=== PATIENT | female | born 1975 | race Caucasian/White ===

== ENCOUNTER 2017-08-05 10:11 | Emergency (ER) | payer OTHER ==
[~2017-08-05] VITALS: Ht 162.6 cm; Wt 81.7 kg
[~2017-08-05 10:11] MED LIST: ACIDOPHILUS; AMOX500; AMOX500 PO; BIRTH CONTROL PILLS; CLIN300 PO; CYCL10 PO; EPIPEN 2-P0.3 MG/0.3 IM; EPIPEN0.3 MG/0.3 IM; ERYT500 PO; FERR325; FLUO10; HYDACE5 PO; HYDHCL25 PO; IBUP600 PO; IBUP800 PO; LOVA40 PO; METPRE4DP PO; MULVITMINE; NAPR550 PO; Norco 10-325 T1 EACH PO; OXYACE5T; OXYACE5T PO; OXYCODONE HCL E10 MG PO; PENVK500 PO; PROM25 PO; Prednisone20 MG PO; Prednisone50 MG PO; RXCYCL10 PO; RXHYDACE PO; Robaxin-750750 MG PO; SILENOR3 MG PO; TRAM50 PO; TRAZ50 PO; Valium5 MG PO; Zofran Odt4 MG SL; Zofran4 MG PO
[2017-08-05] MEDS ORDERED: OXYC10ER (10:41)
[2017-08-05] MEDS ORDERED: TIZANIDINE HCL2 MG (10:41)
[2017-08-05] MEDS ORDERED: MONT4 (10:43)
[2017-08-05 11:19] LABS: BASOPHILS ABSOLUTE AUTO 0.05 K/mm3 (0.00-0.23); BASOPHILS PERCENT AUTO 1 % (0-2); EOSINOPHILS ABSOLUTE AUTO 0.14 K/mm3 (0.00-0.68); EOSINOPHILS PERCENT AUTO 2 % (0-6); Hematocrit 40.9 % (33.0-51.0); Hemoglobin 13.4 g/dL (11.5-16.0); IMMATURE GRAN ABSOLUTE AUTO 0.02 K/mm3 (0.00-0.10); IMMATURE GRAN PERCENT AUTO 0 % (0-1); LYMPHOCYTES ABSOLUTE AUTO 3.39 K/mm3 (0.84-5.20); LYMPHOCYTES PERCENT AUTO 43 % (21-46); MONOCYTES ABSOLUTE AUTO 0.42 K/mm3 (0.16-1.47); MONOCYTES PERCENT AUTO 5 % (4-13); Mean Corpuscular HGB 30.5 pg (26.0-34.0); Mean Corpuscular HGB Conc 32.8 g/dL (31.5-36.5); Mean Corpuscular Volume 93 fL (80-100); Mean Platelet Volume 10.5 fL (9.1-12.4); NEUTROPHILS ABSOLUTE AUTO 3.79 K/mm3 (1.96-9.15); NEUTROPHILS PERCENT AUTO 49 % (41-73); Platelet Count 310 K/mm3 (150-400); RDW Coefficient Variation 13.8 % (11.7-14.2); RDW Standard Deviation 47.6 fL (35.1-46.3); Red Blood Cell Count 4.39 M/mm3 (3.80-5.20); White Blood Cell Count 7.81 K/mm3 (4.00-11.30)
[2017-08-05 11:52] LABS: Alanine Aminotransfer (ALT/SGP 25 U/L (12-78); Albumin, Blood 3.9 g/dL (3.4-5.0); Albumin/Globulin Ratio 1.2 (0.8-1.8); Alk Phos 115 U/L (50-136); Anion Gap 7 mmol/L (6-16); Aspartate Aminotrans (AST/SGOT 12 U/L (12-37); Bilirubin, Total 0.2 mg/dL (0.1-1.0); Blood Urea Nitrogen 11 mg/dL (8-24); Bun/Creatinine Ratio 17.5 (12.0-20.0); CO2, Blood 26 mmol/L (21-32); Calcium, Blood 8.6 mg/dL (8.5-10.1); Chloride, Blood 109 mmol/L (98-108); Creatinine, Blood 0.63 mg/dL (0.40-1.00); Globulin, Blood 3.2 g/dL (2.2-4.0); Glomerular Filtration Rate >60 (60-); Glucose, Blood 91 mg/dL (70-99); Potassium, Blood 3.7 mmol/L (3.5-5.5); Sodium, Blood 142 mmol/L (136-145); Total Protein, Blood 7.1 g/dL (6.4-8.2)
[2018-05-15] MEDS ORDERED: CYCL10 (10:49)
[2018-05-15] MEDS ORDERED: ONDA4ODT MM (12:25)
== END 2017-08-05 12:30 | disposition home or self-care (01) ==
LOC: ER 10:11
PROVIDERS: Emergency Medicine
DX: K42.9 Umbilical hernia without obstruction or gangrene (principal); F17.200 Nicotine dependence, unspecified, uncomplicated; Z88.5 Allergy status to narcotic agent; Z88.8 Allergy status to other drugs, medicaments and biological substances; Z79.899 Other long term (current) drug therapy; Z79.891 Long term (current) use of opiate analgesic
CPT/HCPCS: 36415; 74177; 80053; 81000; 81025; 83690; 85025; 96360; 99284; J7030; Q9967

== ENCOUNTER 2017-09-02 01:30 | Emergency (ER) | payer OTHER ==
[~2017-09-02] VITALS: Ht 162.6 cm; Wt 77.1 kg
[~2017-09-02 01:30] MED LIST changes: +MONT4; +OXYC10ER; +TIZANIDINE HCL2 MG
[2018-05-15] MEDS ORDERED: CYCL10 (10:49)
[2018-05-15] MEDS ORDERED: ONDA4ODT MM (12:25)
== END 2017-09-02 03:49 | disposition home or self-care (01) ==
LOC: ER 01:30
DX: J10.1 Influenza due to other identified influenza virus with other respiratory manifestations (principal); F17.200 Nicotine dependence, unspecified, uncomplicated; Z88.5 Allergy status to narcotic agent; Z88.7 Allergy status to serum and vaccine; Z79.899 Other long term (current) drug therapy
CPT/HCPCS: 36415; 71046; 93005; 93010; 99283

== ENCOUNTER 2017-11-13 16:12 | Emergency (ER) | payer OTHER ==
[~2017-11-13] VITALS: Ht 162.6 cm; Wt 69.8 kg
[2017-11-13 17:07] LABS: Hematocrit 43.9 % (33.0-51.0); Hemoglobin 14.7 g/dL (11.5-16.0); Mean Corpuscular HGB 30.6 pg (26.0-34.0); Mean Corpuscular HGB Conc 33.5 g/dL (31.5-36.5); Mean Corpuscular Volume 91 fL (80-100); Mean Platelet Volume 11.5 fL (9.1-12.4); Platelet Count 314 K/mm3 (150-400); RDW Coefficient Variation 13.1 % (11.7-14.2); RDW Standard Deviation 44.5 fL (35.1-46.3); Red Blood Cell Count 4.81 M/mm3 (3.80-5.20); White Blood Cell Count 10.28 K/mm3 (4.00-11.30)
[2017-11-13 17:23] LABS: Alanine Aminotransfer (ALT/SGP 29 U/L (12-78); Albumin, Blood 4.4 g/dL (3.4-5.0); Albumin/Globulin Ratio 1.3 (0.8-1.8); Alk Phos 112 U/L (50-136); Anion Gap 3 mmol/L (6-16); Aspartate Aminotrans (AST/SGOT 27 U/L (12-37); Bilirubin, Total 0.2 mg/dL (0.1-1.0); Blood Urea Nitrogen 12 mg/dL (8-24); Bun/Creatinine Ratio 16.3 (12.0-20.0); CO2, Blood 27 mmol/L (21-32); Calcium, Blood 9.1 mg/dL (8.5-10.1); Chloride, Blood 110 mmol/L (98-108); Creatinine, Blood 0.74 mg/dL (0.40-1.00); Globulin, Blood 3.4 g/dL (2.2-4.0); Glomerular Filtration Rate >60 (60-); Glucose, Blood 85 mg/dL (70-99); Potassium, Blood 3.9 mmol/L (3.5-5.5); Sodium, Blood 140 mmol/L (136-145); Total Protein, Blood 7.8 g/dL (6.4-8.2); Troponin I <0.015 ng/mL (0.000-0.040)
[2017-11-13 17:34] LABS: BASOPHILS PERCENT MAN 0 % (0-2); EOSINOPHILS ABSOLUTE MAN 0.41 K/mm3 (0.00-0.68); EOSINOPHILS PERCENT MAN 4 % (0-6); LYMPHOCYTES ABSOLUTE MAN 5.14 K/mm3 (0.84-5.20); LYMPHOCYTES PERCENT MAN 50 % (21-46); MONOCYTES ABSOLUTE MAN 0.41 K/mm3 (0.16-1.47); MONOCYTES PERCENT MAN 4 % (4-13); NEUTROPHILS ABSOLUTE MAN 4.31 K/mm3 (1.96-9.15); SEG NEUTROPHILS PERCENT MAN 42 % (41-73); TOTAL CELLS COUNTED 100
[2017-11-13] MEDS ORDERED: Protonix40 MG PO (19:16)
== END 2017-11-13 19:37 | disposition home or self-care (01) ==
LOC: ER 16:12
PROVIDERS: Emergency Medicine
DX: R07.89 Other chest pain (principal); K21.9 Gastro-esophageal reflux disease without esophagitis; E87.8 Other disorders of electrolyte and fluid balance, not elsewhere classified; Z88.8 Allergy status to other drugs, medicaments and biological substances; Z88.5 Allergy status to narcotic agent; Z79.891 Long term (current) use of opiate analgesic; Z79.899 Other long term (current) drug therapy; F17.210 Nicotine dependence, cigarettes, uncomplicated
CPT/HCPCS: 36415; 71046; 80053; 84484; 85025; 85379; 93005; 93010; 96374; 96375; 99284; J1885; J2405

== ENCOUNTER → 2017-12-12 | Outpatient (CLI) | payer OTHER ==
[~2017-12-12] MED LIST changes: +Protonix40 MG PO
[2017-12-12 11:56] LABS: BASOPHILS ABSOLUTE AUTO 0.06 K/mm3 (0.00-0.23); BASOPHILS PERCENT AUTO 1 % (0-2); EOSINOPHILS ABSOLUTE AUTO 0.14 K/mm3 (0.00-0.68); EOSINOPHILS PERCENT AUTO 2 % (0-6); Hematocrit 36.7 % (33.0-51.0); Hemoglobin 12.2 g/dL (11.5-16.0); IMMATURE GRAN ABSOLUTE AUTO 0.01 K/mm3 (0.00-0.10); IMMATURE GRAN PERCENT AUTO 0 % (0-1); LYMPHOCYTES ABSOLUTE AUTO 3.39 K/mm3 (0.84-5.20); LYMPHOCYTES PERCENT AUTO 48 % (21-46); MONOCYTES ABSOLUTE AUTO 0.31 K/mm3 (0.16-1.47); MONOCYTES PERCENT AUTO 4 % (4-13); Mean Corpuscular HGB Conc 33.2 g/dL (31.5-36.5); Mean Corpuscular Volume 90 fL (80-100); Mean Platelet Volume 10.9 fL (9.1-12.4); NEUTROPHILS ABSOLUTE AUTO 3.17 K/mm3 (1.96-9.15); NEUTROPHILS PERCENT AUTO 45 % (41-73); Platelet Count 330 K/mm3 (150-400); RDW Coefficient Variation 13.3 % (11.7-14.2); RDW Standard Deviation 43.9 fL (35.1-46.3); Red Blood Cell Count 4.07 M/mm3 (3.80-5.20); White Blood Cell Count 7.08 K/mm3 (4.00-11.30)
[2017-12-12 12:07] LABS: Alanine Aminotransfer (ALT/SGP 27 U/L (12-78); Albumin/Globulin Ratio 1.5 (0.8-1.8); Alk Phos 103 U/L (40-126); Anion Gap 10 mmol/L (6-16); Aspartate Aminotrans (AST/SGOT 22 U/L (12-37); Bilirubin, Total 0.2 mg/dL (0.1-1.0); Blood Urea Nitrogen 11 mg/dL (8-24); Bun/Creatinine Ratio 15.1 (12.0-20.0); CO2, Blood 26 mmol/L (21-32); Calcium, Blood 8.4 mg/dL (8.5-10.1); Chloride, Blood 105 mmol/L (98-108); Creatinine, Blood 0.73 mg/dL (0.40-1.00); Globulin, Blood 2.6 g/dL (2.2-4.0); Glomerular Filtration Rate >60 (60-); Glucose, Blood 88 mg/dL (70-99); Potassium, Blood 3.9 mmol/L (3.5-5.5); Sodium, Blood 141 mmol/L (136-145); Total Protein, Blood 6.6 g/dL (6.4-8.2)
== END | disposition home or self-care (01) ==
LOC: LAB SHORT 11:52 → LAB EV 11:52
PROVIDERS: Physician Assistant Medical
DX: R11.2 Nausea with vomiting, unspecified (principal)
CPT/HCPCS: 80053; 85025

== ENCOUNTER 2017-12-21 21:20 | Emergency (ER) | payer OTHER ==
[~2017-12-21] VITALS: Ht 162.6 cm; Wt 79.4 kg
[~2017-12-21 21:20] MED LIST changes: -Baclofen20 MG PO; -CEFU500T30 PO; -Prozac20 MG PO
[2017-12-21] MEDS ORDERED: Baclofen20 MG PO (21:32)
[2017-12-21] MEDS ORDERED: Prozac20 MG PO (21:32)
[2017-12-21] MEDS ORDERED: CEFU500T30 PO (21:32)
[2017-12-21 21:50] LABS: Source, Urine Clean Catch
[2017-12-21 21:50] LABS: BASOPHILS ABSOLUTE AUTO 0.05 K/mm3 (0.00-0.23); BASOPHILS PERCENT AUTO 1 % (0-2); EOSINOPHILS ABSOLUTE AUTO 0.28 K/mm3 (0.00-0.68); EOSINOPHILS PERCENT AUTO 3 % (0-6); Hemoglobin 11.6 g/dL (11.5-16.0); IMMATURE GRAN ABSOLUTE AUTO 0.01 K/mm3 (0.00-0.10); IMMATURE GRAN PERCENT AUTO 0 % (0-1); LYMPHOCYTES PERCENT AUTO 43 % (21-46); MONOCYTES ABSOLUTE AUTO 0.63 K/mm3 (0.16-1.47); MONOCYTES PERCENT AUTO 6 % (4-13); Mean Corpuscular HGB 30.3 pg (26.0-34.0); Mean Corpuscular HGB Conc 33.1 g/dL (31.5-36.5); Mean Corpuscular Volume 91 fL (80-100); Mean Platelet Volume 11.1 fL (9.1-12.4); NEUTROPHILS ABSOLUTE AUTO 5.07 K/mm3 (1.96-9.15); NEUTROPHILS PERCENT AUTO 48 % (41-73); Platelet Count 314 K/mm3 (150-400); RDW Coefficient Variation 13.7 % (11.7-14.2); RDW Standard Deviation 45.7 fL (35.1-46.3); Red Blood Cell Count 3.83 M/mm3 (3.80-5.20); White Blood Cell Count 10.64 K/mm3 (4.00-11.30)
[2017-12-21 21:54] LABS: Appearance, Urine Clear (Clear); Bilirubin, Urine Neg (Neg); Blood, Urine 1+ (Neg); Color, Urine Yellow (P-Yellow); Glucose Qualitative, Urine Neg (Neg); Ketones, Urine Neg (Neg); Leukocyte Esterase, Urine 1+ (Neg); Nitrite, Urine Neg (Neg); Protein, Urine Neg (Neg); Specific Gravity, Urine 1.015 (1.003-1.022); Urobilinogen, Urine NORM (Normal)
[2017-12-21 22:01] LABS: Bacteria Few /hpf; Red Blood Cells, Urine 0-2 /hpf (0-2); Squamous Epithelial Cells Rare /hpf (Few)
[2017-12-21 22:08] LABS: Alanine Aminotransfer (ALT/SGP 25 U/L (12-78); Albumin, Blood 3.7 g/dL (3.4-5.0); Albumin/Globulin Ratio 1.2 (0.8-1.8); Alk Phos 98 U/L (50-136); Anion Gap 8 mmol/L (6-16); Aspartate Aminotrans (AST/SGOT 19 U/L (12-37); Bilirubin, Total 0.2 mg/dL (0.1-1.0); Blood Urea Nitrogen 15 mg/dL (8-24); Bun/Creatinine Ratio 19.9 (12.0-20.0); CO2, Blood 24 mmol/L (21-32); Calcium, Blood 8.5 mg/dL (8.5-10.1); Chloride, Blood 110 mmol/L (98-108); Creatinine, Blood 0.75 mg/dL (0.40-1.00); Glomerular Filtration Rate >60 (60-); Glucose, Blood 96 mg/dL (70-99); Potassium, Blood 3.9 mmol/L (3.5-5.5); Sodium, Blood 142 mmol/L (136-145); Total Protein, Blood 6.7 g/dL (6.4-8.2)
== END 2017-12-21 23:05 | disposition home or self-care (01) ==
LOC: ER 21:20
PROVIDERS: Emergency Medicine
DX: K59.00 Constipation, unspecified (principal); F17.210 Nicotine dependence, cigarettes, uncomplicated
CPT/HCPCS: 36415; 80053; 81001; 85025; 86850; 86900; 86901; 87086; 99283

== ENCOUNTER → 2017-12-21 | Outpatient (CLI) | payer OTHER ==
[~2017-12-21] MED LIST changes: +Baclofen20 MG PO; +CEFU500T30 PO; +Prozac20 MG PO
[2017-12-21 19:08] LABS: BASOPHILS ABSOLUTE AUTO 0.06 K/mm3 (0.00-0.23); BASOPHILS PERCENT AUTO 1 % (0-2); EOSINOPHILS ABSOLUTE AUTO 0.27 K/mm3 (0.00-0.68); EOSINOPHILS PERCENT AUTO 3 % (0-6); Hematocrit 36.7 % (33.0-51.0); Hemoglobin 12.3 g/dL (11.5-16.0); IMMATURE GRAN ABSOLUTE AUTO 0.02 K/mm3 (0.00-0.10); IMMATURE GRAN PERCENT AUTO 0 % (0-1); LYMPHOCYTES ABSOLUTE AUTO 4.04 K/mm3 (0.84-5.20); LYMPHOCYTES PERCENT AUTO 50 % (21-46); MONOCYTES ABSOLUTE AUTO 0.57 K/mm3 (0.16-1.47); MONOCYTES PERCENT AUTO 7 % (4-13); Mean Corpuscular HGB 30.3 pg (26.0-34.0); Mean Corpuscular HGB Conc 33.5 g/dL (31.5-36.5); Mean Corpuscular Volume 90 fL (80-100); Mean Platelet Volume 11.4 fL (9.1-12.4); NEUTROPHILS ABSOLUTE AUTO 3.18 K/mm3 (1.96-9.15); NEUTROPHILS PERCENT AUTO 39 % (41-73); Platelet Count 314 K/mm3 (150-400); RDW Coefficient Variation 13.7 % (11.7-14.2); RDW Standard Deviation 44.7 fL (35.1-46.3); Red Blood Cell Count 4.06 M/mm3 (3.80-5.20); White Blood Cell Count 8.14 K/mm3 (4.00-11.30)
[2017-12-21 19:12] LABS: Anion Gap 11 mmol/L (6-16); Blood Urea Nitrogen 16 mg/dL (8-24); Bun/Creatinine Ratio 18.2 (12.0-20.0); CO2, Blood 28 mmol/L (21-32); Calcium, Blood 8.9 mg/dL (8.5-10.1); Chloride, Blood 103 mmol/L (98-108); Creatinine, Blood 0.88 mg/dL (0.40-1.00); Glomerular Filtration Rate >60 (60-); Glucose, Blood 95 mg/dL (70-99); Potassium, Blood 3.6 mmol/L (3.5-5.5); Sodium, Blood 142 mmol/L (136-145)
== END ==
LOC: LAB SHORT 19:03 → LAB EV 19:03
PROVIDERS: Physician Assistant Surgical
DX: R42 Dizziness and giddiness (principal)
CPT/HCPCS: 80048; 85025

== ENCOUNTER 2018-03-29 08:12 | Emergency (ER) | payer OTHER ==
[~2018-03-29] VITALS: Ht 162.6 cm; Wt 72.6 kg
[~2018-03-29 08:12] MED LIST changes: +Baclofen20 MG PO; +CEFU500T30 PO; +Prozac20 MG PO
[2018-03-29] MEDS ORDERED: PROP10 PO (08:29)
[2018-03-29] MEDS ORDERED: TRAZ50 PO (08:29)
[2018-03-29] MEDS ORDERED: DIAZ2 PO (08:29)
[2018-03-29] MEDS ORDERED: CLIN150 PO (08:30)
[2018-03-29] MEDS ORDERED: CYCL10 PO (08:30)
[2018-03-29] MEDS ORDERED: DULO30 PO (08:30)
[2018-03-29] MEDS ORDERED: Augmentin 875-1 EACH PO (08:43)
== END 2018-03-29 08:55 | disposition home or self-care (01) ==
LOC: ER 08:12
DX: K04.7 Periapical abscess without sinus (principal); Z88.5 Allergy status to narcotic agent; Z88.8 Allergy status to other drugs, medicaments and biological substances; Z79.899 Other long term (current) drug therapy; Z79.2 Long term (current) use of antibiotics; F17.210 Nicotine dependence, cigarettes, uncomplicated
CPT/HCPCS: 99282

== ENCOUNTER 2018-04-09 12:53 | Day surgery (SDC) | payer OTHER ==
[~2018-04-09] VITALS: Ht 162.6 cm; Wt 77.0 kg
[~2018-04-09 12:53] MED LIST changes: +Augmentin 875-1 EACH PO; +CLIN150 PO; +DIAZ2 PO; +DULO30 PO; +PROP10 PO
[2018-04-09] MEDS ORDERED: Percocet 5-3251 EACH PO (13:10)
== END 2018-04-09 14:31 | disposition home or self-care (01) ==
LOC: ORSCSDS 12:53
PROVIDERS: Internal Medicine Gastroenterology
PROC: 0DBN8ZX Excision of Sigmoid Colon, Via Natural or Artificial Opening Endoscopic, Diagnostic (ICD-10-PCS; principal; 2018-04-09 15:00)
PROC: 0DB68ZX Excision of Stomach, Via Natural or Artificial Opening Endoscopic, Diagnostic (ICD-10-PCS; principal; 2018-04-09 15:00)
PROC: 0DB58ZX Excision of Esophagus, Via Natural or Artificial Opening Endoscopic, Diagnostic (ICD-10-PCS; principal; 2018-04-09 15:00)
PROC: 0DB98ZX Excision of Duodenum, Via Natural or Artificial Opening Endoscopic, Diagnostic (ICD-10-PCS; principal; 2018-04-09 15:00)
PROC: 0D757ZZ Dilation of Esophagus, Via Natural or Artificial Opening (ICD-10-PCS; principal; 2018-04-09 15:00)
PROC: 0DBE8ZX Excision of Large Intestine, Via Natural or Artificial Opening Endoscopic, Diagnostic (ICD-10-PCS; principal; 2018-04-09 15:00)
DX: K92.1 Melena (principal); Z86.010 Personal history of colon polyps; R15.0 Incomplete defecation; R19.4 Change in bowel habit; K62.1 Rectal polyp; K31.84 Gastroparesis; K29.80 Duodenitis without bleeding; R11.2 Nausea with vomiting, unspecified; R13.14 Dysphagia, pharyngoesophageal phase; R10.84 Generalized abdominal pain; M79.7 Fibromyalgia; F17.210 Nicotine dependence, cigarettes, uncomplicated; Z79.899 Other long term (current) drug therapy
CPT/HCPCS: J2250; J7120

== ENCOUNTER → 2019-01-30 | Outpatient (CLI) | payer OTHER ==
[~2019-01-30] MED LIST changes: +CYCL10; +ONDA4ODT MM; +Percocet 5-3251 EACH PO
[2019-01-30 12:34] LABS: Hematocrit 39.7 % (33.0-51.0); Hemoglobin 13.5 g/dL (11.5-16.0); Mean Corpuscular HGB 30.8 pg (26.0-34.0); Mean Corpuscular Volume 91 fL (80-100); Mean Platelet Volume 11.1 fL (9.1-12.4); Platelet Count 333 K/mm3 (150-400); RDW Coefficient Variation 13.2 % (11.7-14.2); Red Blood Cell Count 4.38 M/mm3 (3.80-5.20); White Blood Cell Count 9.27 K/mm3 (4.00-11.30)
[2019-01-30 12:51] LABS: Alanine Aminotransfer (ALT/SGP 29 U/L (12-78); Albumin, Blood 4.2 g/dL (3.4-5.0); Albumin/Globulin Ratio 1.4 (0.8-1.8); Alk Phos 109 U/L (40-126); Anion Gap 10 mmol/L (6-16); Aspartate Aminotrans (AST/SGOT 21 U/L (12-37); Bilirubin, Total 0.2 mg/dL (0.1-1.0); Blood Urea Nitrogen 14 mg/dL (8-24); Bun/Creatinine Ratio 19.2 (12.0-20.0); CO2, Blood 27 mmol/L (21-32); Calcium, Blood 8.9 mg/dL (8.5-10.1); Chloride, Blood 104 mmol/L (98-108); Creatinine, Blood 0.73 mg/dL (0.40-1.00); Globulin, Blood 2.9 g/dL (2.2-4.0); Glomerular Filtration Rate >60 (60-); Glucose, Blood 88 mg/dL (70-99); Potassium, Blood 4.1 mmol/L (3.5-5.5); Sodium, Blood 141 mmol/L (136-145); Total Protein, Blood 7.1 g/dL (6.4-8.2)
[2019-01-30 14:24] LABS: BASOPHILS ABSOLUTE MAN 0.09 K/mm3 (0.00-0.23); BASOPHILS PERCENT MAN 1 % (0-2); EOSINOPHILS PERCENT MAN 0 % (0-6); LYMPHOCYTES ABSOLUTE MAN 4.91 K/mm3 (0.84-5.20); LYMPHOCYTES PERCENT MAN 53 % (21-46); MONOCYTES ABSOLUTE MAN 0.46 K/mm3 (0.16-1.47); MONOCYTES PERCENT MAN 5 % (4-13); SEG NEUTROPHILS PERCENT MAN 41 % (41-73); TOTAL CELLS COUNTED 100
== END | disposition home or self-care (01) ==
LOC: LAB SHORT 12:30 → LAB EV 12:30
PROVIDERS: Physician Assistant
DX: R10.9 Unspecified abdominal pain (principal)
CPT/HCPCS: 80053; 83690; 85025

== ENCOUNTER → 2020-01-13 | Outpatient (CLI) | payer OTHER ==
[~2020-01-13] MED LIST changes: +ALMACONE SUSPE355 ML PO; +AMOCLA875 PO; +Diazepam2 MG PO; +Diclofenac Pota50 MG PO; +META800 PO; +Nicoderm Cq1 EAC1 TOP; +OXYC10TA19 PO; +OXYCODONE-ACET1 EAC2 PO; +PANT40 PO; +RA PROBIOTIC C PO; +SULTRIDS PO; +TRAZ150T57 PO; +ZYRTEC10 M2 PO
[2020-01-13 10:17] LABS: BASOPHILS ABSOLUTE AUTO 0.08 K/mm3 (0.00-0.23); BASOPHILS PERCENT AUTO 0 % (0-2); EOSINOPHILS ABSOLUTE AUTO 0.15 K/mm3 (0.00-0.68); EOSINOPHILS PERCENT AUTO 1 % (0-6); Hematocrit 41.5 % (33.0-51.0); Hemoglobin 13.7 g/dL (11.5-16.0); IMMATURE GRAN ABSOLUTE AUTO 0.23 K/mm3 (0.00-0.10); IMMATURE GRAN PERCENT AUTO 1 % (0-1); LYMPHOCYTES PERCENT AUTO 13 % (21-46); MONOCYTES ABSOLUTE AUTO 1.21 K/mm3 (0.16-1.47); MONOCYTES PERCENT AUTO 5 % (4-13); Mean Corpuscular HGB 30.8 pg (26.0-34.0); Mean Corpuscular Volume 93 fL (80-100); Mean Platelet Volume 11.5 fL (9.1-12.4); NEUTROPHILS ABSOLUTE AUTO 20.75 K/mm3 (1.96-9.15); NEUTROPHILS PERCENT AUTO 81 % (41-73); Platelet Count 296 K/mm3 (150-400); RDW Coefficient Variation 14.4 % (11.7-14.2); RDW Standard Deviation 48.8 fL (35.1-46.3); Red Blood Cell Count 4.45 M/mm3 (3.80-5.20); White Blood Cell Count 25.62 K/mm3 (4.00-11.30)
[2020-01-13 11:01] LABS: Alanine Aminotransfer (ALT/SGP 23 U/L (12-78); Albumin, Blood 3.6 g/dL (3.4-5.0); Albumin/Globulin Ratio 1.3 (0.8-1.8); Alk Phos 71 U/L (40-126); Anion Gap 9 mmol/L (6-16); Aspartate Aminotrans (AST/SGOT 20 U/L (12-37); Bilirubin, Total 0.5 mg/dL (0.1-1.0); Blood Urea Nitrogen 19 mg/dL (8-24); Bun/Creatinine Ratio 25.7 (12.0-20.0); CO2, Blood 26 mmol/L (21-32); Calcium, Blood 8.1 mg/dL (8.5-10.1); Chloride, Blood 107 mmol/L (98-108); Creatinine, Blood 0.74 mg/dL (0.40-1.00); Globulin, Blood 2.8 g/dL (2.2-4.0); Glomerular Filtration Rate >60 (60-); Glucose, Blood 110 mg/dL (70-99); Potassium, Blood 4.1 mmol/L (3.5-5.5); Sodium, Blood 142 mmol/L (136-145); Total Protein, Blood 6.4 g/dL (6.4-8.2)
[2020-01-13 11:27] LABS: BAND PERCENT MAN 4 % (0-8); BASOPHILS PERCENT MAN 0 % (0-2); EOSINOPHILS PERCENT MAN 0 % (0-6); LYMPHOCYTES ABSOLUTE MAN 4.61 K/mm3 (0.84-5.20); LYMPHOCYTES PERCENT MAN 18 % (21-46); MONOCYTES ABSOLUTE MAN 1.02 K/mm3 (0.16-1.47); MONOCYTES PERCENT MAN 4 % (4-13); NEUTROPHILS ABSOLUTE MAN 19.98 K/mm3 (1.96-9.15); SEG NEUTROPHILS PERCENT MAN 74 % (41-73); TOTAL CELLS COUNTED 100
== END | disposition home or self-care (01) ==
LOC: LAB SHORT 10:11 → LAB EV 10:11
PROVIDERS: Physician Assistant Medical
DX: D72.829 Elevated white blood cell count, unspecified (principal); R07.9 Chest pain, unspecified
CPT/HCPCS: 80053; 85025; 87040

== ENCOUNTER 2020-01-16 14:16 | Inpatient (IN) | payer OTHER ==
[~2020-01-16] VITALS: Ht 162.6 cm; Wt 80.6 kg
[~2020-01-16 14:16] MED LIST changes: -ALMACONE SUSPE355 ML PO; -SULTRIDS PO
[2020-01-16 15:28] LABS: BASOPHILS ABSOLUTE AUTO 0.08 K/mm3 (0.00-0.23); BASOPHILS PERCENT AUTO 1 % (0-2); EOSINOPHILS ABSOLUTE AUTO 0.14 K/mm3 (0.00-0.68); EOSINOPHILS PERCENT AUTO 1 % (0-6); Hematocrit 37.9 % (33.0-51.0); Hemoglobin 12.3 g/dL (11.5-16.0); IMMATURE GRAN ABSOLUTE AUTO 0.04 K/mm3 (0.00-0.10); IMMATURE GRAN PERCENT AUTO 0 % (0-1); LYMPHOCYTES ABSOLUTE AUTO 3.22 K/mm3 (0.84-5.20); LYMPHOCYTES PERCENT AUTO 27 % (21-46); MONOCYTES ABSOLUTE AUTO 0.93 K/mm3 (0.16-1.47); MONOCYTES PERCENT AUTO 8 % (4-13); Mean Corpuscular HGB 30.8 pg (26.0-34.0); Mean Corpuscular HGB Conc 32.5 g/dL (31.5-36.5); Mean Corpuscular Volume 95 fL (80-100); Mean Platelet Volume 10.9 fL (9.1-12.4); NEUTROPHILS ABSOLUTE AUTO 7.55 K/mm3 (1.96-9.15); NEUTROPHILS PERCENT AUTO 63 % (41-73); Platelet Count 309 K/mm3 (150-400); RDW Coefficient Variation 13.8 % (11.7-14.2); White Blood Cell Count 11.96 K/mm3 (4.00-11.30)
[2020-01-16 15:54] LABS: Alanine Aminotransfer (ALT/SGP 19 U/L (12-78); Albumin, Blood 3.2 g/dL (3.4-5.0); Albumin/Globulin Ratio 0.9 (0.8-1.8); Alk Phos 68 U/L (50-136); Anion Gap 4 mmol/L (6-16); Aspartate Aminotrans (AST/SGOT 14 U/L (12-37); Bilirubin, Total 0.4 mg/dL (0.1-1.0); Blood Urea Nitrogen 9 mg/dL (8-24); CO2, Blood 26 mmol/L (21-32); Calcium, Blood 7.9 mg/dL (8.5-10.1); Chloride, Blood 108 mmol/L (98-108); Creatinine, Blood 0.69 mg/dL (0.40-1.00); Globulin, Blood 3.6 g/dL (2.2-4.0); Glomerular Filtration Rate >60 (60-); Glucose, Blood 91 mg/dL (70-99); Potassium, Blood 3.7 mmol/L (3.5-5.5); Sodium, Blood 138 mmol/L (136-145); Total Protein, Blood 6.8 g/dL (6.4-8.2)
[2020-01-17 05:06] LABS: Hematocrit 35.4 % (33.0-51.0); Hemoglobin 11.3 g/dL (11.5-16.0); Mean Corpuscular HGB 30.7 pg (26.0-34.0); Mean Corpuscular HGB Conc 31.9 g/dL (31.5-36.5); Mean Corpuscular Volume 96 fL (80-100); Mean Platelet Volume 11.2 fL (9.1-12.4); Platelet Count 291 K/mm3 (150-400); RDW Coefficient Variation 13.7 % (11.7-14.2); RDW Standard Deviation 48.7 fL (35.1-46.3); Red Blood Cell Count 3.68 M/mm3 (3.80-5.20); White Blood Cell Count 12.76 K/mm3 (4.00-11.30)
--- NOTE | 2020-01-17 07:35 | NUR ---
SUMMARY PT PAIN MANAGED WELL. PT WAS ABLE TO SLEEP DURING SHIFT. PT AWAKE THIS AM AND PLESANT. CALL LIGHT IN REACH.
[2020-01-17 08:23] LABS: International Normalized Ratio 0.94; Prothrombin Time Results 10.1 Sec (9.7-11.5)
--- NOTE | 2020-01-17 16:36 | NUR ---
SHIFT SUMMARY PT A&O, PT IS ON RA AND INDEPENTENT IN ROOM. PT HAS 20G IN RFA. PT HAD PROCEDURE THIS AM WITH RADIOLOGY, TEST WAS NOT COMPLETED BECAUSE VISABILITY PER RADIOLOGY. PT HAD A HARD TIME WITH MANAGING PAIN THIS SHIFT AND WAS MEDICATED X3, PT ALSO REPORTED INCREASED ANXIETY AND WAS MEDICATED X1 PRIOR TO PROCEDURE. A PROVIDER CONSULT WAS CALLED TO DR CRUZ AND MESSAGE LEFT WITH . WILL REPORT TO NOC RN, CALL LIGHT WITH IN REACH.
[2020-01-18 05:12] LABS: BASOPHILS ABSOLUTE AUTO 0.03 K/mm3 (0.00-0.23); BASOPHILS PERCENT AUTO 0 % (0-2); EOSINOPHILS ABSOLUTE AUTO 0.03 K/mm3 (0.00-0.68); EOSINOPHILS PERCENT AUTO 0 % (0-6); Hematocrit 31.5 % (33.0-51.0); Hemoglobin 9.8 g/dL (11.5-16.0); IMMATURE GRAN ABSOLUTE AUTO 0.04 K/mm3 (0.00-0.10); IMMATURE GRAN PERCENT AUTO 0 % (0-1); LYMPHOCYTES ABSOLUTE AUTO 3.91 K/mm3 (0.84-5.20); LYMPHOCYTES PERCENT AUTO 30 % (21-46); MONOCYTES ABSOLUTE AUTO 0.79 K/mm3 (0.16-1.47); MONOCYTES PERCENT AUTO 6 % (4-13); Mean Corpuscular HGB 30.1 pg (26.0-34.0); Mean Corpuscular HGB Conc 31.1 g/dL (31.5-36.5); Mean Corpuscular Volume 97 fL (80-100); Mean Platelet Volume 11.6 fL (9.1-12.4); NEUTROPHILS ABSOLUTE AUTO 8.19 K/mm3 (1.96-9.15); NEUTROPHILS PERCENT AUTO 63 % (41-73); Platelet Count 288 K/mm3 (150-400); RDW Coefficient Variation 13.9 % (11.7-14.2); Red Blood Cell Count 3.26 M/mm3 (3.80-5.20); White Blood Cell Count 12.99 K/mm3 (4.00-11.30)
[2020-01-18 05:34] LABS: Albumin, Blood 2.6 g/dL (3.4-5.0); Anion Gap 3 mmol/L (6-16); Blood Urea Nitrogen 11 mg/dL (8-24); Bun/Creatinine Ratio 15.6 (12.0-20.0); CO2, Blood 29 mmol/L (21-32); Chloride, Blood 109 mmol/L (98-108); Glomerular Filtration Rate >60 (60-); Glucose, Blood 108 mg/dL (70-99); Potassium, Blood 3.9 mmol/L (3.5-5.5); Sodium, Blood 141 mmol/L (136-145)
--- NOTE | 2020-01-18 05:54 | NUR ---
SUMMARY PT CONTINUES TO HAVE DISCOMFORT. PT TX PER EMAR W/ RELIEF. PT COMPLAINED OF INCREASED NAUSEA. PROVIDER CALLED AND A REGLAN ORDER WAS PLACED. PT HAS BEEN ABLE TO SLEEP WELL TONIGHT. PT CURRENTLY SLEEPING AND IN NO DISTRESS. CALL LIGHT IN REACH.
--- NOTE | 2020-01-18 14:59 | NUR ---
PROVIDER NOTIFY CALLED TO PT ROOM, PT REPORTS HAVING A HEAVY FEELING IN CHEST THAT RADIATES FROM THE MIDLINE OF HER CHEST TO LEFT BREAST. PCU DIRECTOR OF GOVERNMENT SALES CALLED A RATE OF 48 WAS REPORTED. VITALS CHECKED SEE GRAPHICS. NO NARCOTIC PAIN MEDS GIVEN AT THIS TIME. DR. FAULKNER NOTIFIED AND ORDERS PLACED. EKG BEING PERFORMED AT BESIDE BY CHARGE NURSE ANANTH.
--- NOTE | 2020-01-18 16:10 | NUR ---
PROVIDER AT BEDSIDE DR. NOVOA AT BEDSIDE TO ASSESS PT. PT COMPLAINGING OF INCREASED CHEST PRESSURE. PT REPORTS NO RELIEF FROM TORDOL. MALLOX GIVEN PER DR. WISDOM, PT REPORTS SOME RELEIF. PT'S FAMILY CALLED WITH CONCERNS, DR. WISDOM DISCUSSED PLAN WITH AND PT, PLAN ESTABLISHED TO FOLLOW UP WITH [facility] PER PT REQEST AFTER D/C. NEW ORDERS PLACED. PT TRANSPORTED TO IMAGING VIA W/C FOR ADDITIONAL IMAGING. PCU NOTIFIED OF PT OFF MED FLOOR.
--- NOTE | 2020-01-18 19:29 | NUR ---
SHIFT SUMMARY PT IS A&O, POWER GLIDE PLACED THE SHIFT BY , PT IS ON RA AND CORTNEY ANY SOB, PT HAS BEEN BRADYARDIC THROUHOUT THE SHIFT, PT CORTNEY S&S. PT HAS HAD A HARD TIME CONTROLING PAIN THIS SHIFT, SEE EMAR. PROVIDER NOTIFIED. PT HAD IMAGING STUDIES PERFORMED AND ALSO EKG THIS SHIFT. PT TOLORATED ALL MEALS AND WAS MEDICATED X1 FOR NAUSEA AND X1 FOR UPPER GASTRIC PAIN. PT IN INDEPENTENT IN ROOM. PT HAS CALL LIGHT WITH IN REACH AND WILL REPORT TO ONCOMING RN.
--- NOTE | 2020-01-19 00:08 | NUR ---
HR/RHYTHM NOTIFIED AROUND 2400 BY PCU RCIS, PT WAS SINUSBRADY & HR DECREASED TO MID 40'S. AT THIS TIME PT WAS ASYMPTOMATIC & SLEEPING. SHE RECIEVED 2MG VALIUM ROUGHLY 1 HR PRIOR FOR ANXIETY. CALL LIGHT IN REACH & I WILL CONTINUE TO MONITOR.
--- NOTE | 2020-01-19 04:54 | NUR ---
SHIFT SUMMARY AOX4. VSS. TELE RUNNING SINUSBRADY HR 45-55 T/O NIGHT WHILE PT SLEEPING. PT REPORTED FEELING ANXIOUS LAST NIGHT & MEDICATED 1X W/2MG VALIUM. REPORTS NAUSEA & "UPSET STOMACH," MEDICATED 1X W/MAYLOX & 1X W/ZOFRAN WHICH PT STATES RELIEF. REPORTS 5-6/10 PAIN IN L BREAST & BACK, MEDICATED 1X W/25MCG FENT & 2X W/15MG TORADOL, PT STATES RELIEF & PAIN DECREASING TO 3/10. L BREAST IS FIRM & TENDER TO TOUCH BUT NO REDNESS IS NOTED. CALL LIGHT IN REACH. WCTM.
[2020-01-19 05:41] LABS: BASOPHILS ABSOLUTE AUTO 0.07 K/mm3 (0.00-0.23); BASOPHILS PERCENT AUTO 1 % (0-2); EOSINOPHILS ABSOLUTE AUTO 0.09 K/mm3 (0.00-0.68); EOSINOPHILS PERCENT AUTO 1 % (0-6); Hematocrit 33.7 % (33.0-51.0); Hemoglobin 10.8 g/dL (11.5-16.0); IMMATURE GRAN ABSOLUTE AUTO 0.03 K/mm3 (0.00-0.10); IMMATURE GRAN PERCENT AUTO 0 % (0-1); LYMPHOCYTES ABSOLUTE AUTO 6.04 K/mm3 (0.84-5.20); LYMPHOCYTES PERCENT AUTO 53 % (21-46); MONOCYTES ABSOLUTE AUTO 0.63 K/mm3 (0.16-1.47); MONOCYTES PERCENT AUTO 6 % (4-13); Mean Corpuscular Volume 97 fL (80-100); Mean Platelet Volume 11.2 fL (9.1-12.4); NEUTROPHILS ABSOLUTE AUTO 4.64 K/mm3 (1.96-9.15); NEUTROPHILS PERCENT AUTO 40 % (41-73); Platelet Count 326 K/mm3 (150-400); RDW Coefficient Variation 14.2 % (11.7-14.2); RDW Standard Deviation 50.4 fL (35.1-46.3); Red Blood Cell Count 3.48 M/mm3 (3.80-5.20)
[2020-01-19 05:56] LABS: Albumin, Blood 2.9 g/dL (3.4-5.0); Anion Gap 3 mmol/L (6-16); Blood Urea Nitrogen 11 mg/dL (8-24); Bun/Creatinine Ratio 13.6 (12.0-20.0); CO2, Blood 29 mmol/L (21-32); Calcium, Blood 8.2 mg/dL (8.5-10.1); Chloride, Blood 111 mmol/L (98-108); Creatinine, Blood 0.81 mg/dL (0.40-1.00); Glomerular Filtration Rate >60 (60-); Glucose, Blood 80 mg/dL (70-99); Phosphorus, Blood 3.5 mg/dL (2.5-4.9); Potassium, Blood 3.9 mmol/L (3.5-5.5); Sodium, Blood 143 mmol/L (136-145)
[2020-01-19] MEDS ORDERED: SULTRIDS PO (11:02)
[2020-01-19] MEDS ORDERED: ALMACONE SUSPE355 ML PO (11:02)
--- NOTE | 2020-01-19 11:21 | NUR ---
DISCHARGE INSTRUCTIONS REVIEWED WITH PT AND SPOUSE. POWER[facility]IDE DC'D INTACT. PT REPORTS SHE WOULD LIKE TO CALL AND SCHEDULE F/U APPT WITH PCP. CALLED AND SPOKE WITH [facility] AND WAS ABLE TO GET A F/U APPT WITH BAILEY CHERY ON 01/26 AT 2:30, THIS IS THE EARLIEST APPT THEY HAD AVAILABLE. RX FAXED TO [facility]. PT DC'D HOME WITH SPOUSE AT 1115.
== END 2020-01-19 11:16 | disposition home or self-care (01) | DRG 921 ==
LOC: ER 14:16 → MEDS 14:17 → ER 14:17 → MEDS 14:17
PROVIDERS: Emergency Medicine; Family Medicine; ADMIT Internal Medicine
DX: T85.79XA Infection and inflammatory reaction due to other internal prosthetic devices, implants and grafts, initial encounter (principal); M79.7 Fibromyalgia; Z96.651 Presence of right artificial knee joint; F17.210 Nicotine dependence, cigarettes, uncomplicated; E78.5 Hyperlipidemia, unspecified; N61.0 Mastitis without abscess; F11.90 Opioid use, unspecified, uncomplicated; K21.9 Gastro-esophageal reflux disease without esophagitis; R00.1 Bradycardia, unspecified; I95.9 Hypotension, unspecified; F32.9 Major depressive disorder, single episode, unspecified
CPT/HCPCS: 36415; 71046; 71260; 74018; 76641; 76642; 80053; 80069; 83605; 83690; 84484; 85025; 85027; 85610; 85730; 87040; 93005; 93010; 96361; 96365-59; 96366; 96375; 96375-59; 96376; 99285-25; A9270-GY; C1751; C9113; G0378; J0295; J1100; J1885; J2270; J2405; J2765; J3010; J3370; J7030; J7050; Q9967

== ENCOUNTER → 2020-10-15 | Outpatient (CLI) | payer OTHER ==
[~2020-10-15] MED LIST changes: +ALMACONE SUSPE355 ML PO; +OXYC10ER PO; +PERCOCET 10-321 EAC1 PO; +SULTRIDS PO
== END | disposition home or self-care (01) ==
LOC: LAB SHORT 14:00 → PLD 14:00
DX: J02.9 Acute pharyngitis, unspecified (principal)
CPT/HCPCS: 87081

== ENCOUNTER 2020-11-21 15:24 | Emergency (ER) | payer OTHER ==
[~2020-11-21] VITALS: Ht 162.6 cm; Wt 74.4 kg
== END 2020-11-21 16:17 | disposition home or self-care (01) ==
LOC: ER 15:24
DX: S86.811A Strain of other muscle(s) and tendon(s) at lower leg level, right leg, initial encounter (principal); Z88.7 Allergy status to serum and vaccine; Z88.5 Allergy status to narcotic agent; Z79.899 Other long term (current) drug therapy; F17.210 Nicotine dependence, cigarettes, uncomplicated; X50.1XXA Overexertion from prolonged static or awkward postures, initial encounter
CPT/HCPCS: 73562-RT; 99283-25

== ENCOUNTER → 2021-06-21 | Outpatient (CLI) | payer OTHER ==
[~2021-06-21] MED LIST changes: +BACLOFEN5 M1; +LOPE2C PO; +PANT20
[2021-06-21 16:17] LABS: Bacteria Few /hpf; Red Blood Cells, Urine 0-2 /hpf (0-2); Squamous Epithelial Cells Few /hpf (Few); White Blood Cells, Urine 0-2 /hpf (0-5)
== END ==
LOC: LAB SHORT 10:15
PROVIDERS: Nurse Practitioner
DX: R39.15 Urgency of urination (principal); R10.9 Unspecified abdominal pain; R35.0 Frequency of micturition
CPT/HCPCS: 81015

== ENCOUNTER 2021-08-05 05:46 | Emergency (ER) | payer OTHER ==
[~2021-08-05] VITALS: Ht 162.6 cm; Wt 72.6 kg
[~2021-08-05 05:46] MED LIST changes: -BACLOFEN5 M1; -LOPE2C PO; -PANT20
[2021-08-05] MEDS ORDERED: PANT20 (06:31)
[2021-08-05] MEDS ORDERED: BACLOFEN5 M1 (06:31)
[2021-08-05 07:30] LABS: BASOPHILS ABSOLUTE AUTO 0.07 K/mm3 (0.00-0.23); BASOPHILS PERCENT AUTO 1 % (0-2); EOSINOPHILS PERCENT AUTO 2 % (0-6); Hematocrit 41.8 % (33.0-51.0); Hemoglobin 13.8 g/dL (11.5-16.0); IMMATURE GRAN ABSOLUTE AUTO 0.01 K/mm3 (0.00-0.10); IMMATURE GRAN PERCENT AUTO 0 % (0-1); LYMPHOCYTES ABSOLUTE AUTO 3.71 K/mm3 (0.84-5.20); LYMPHOCYTES PERCENT AUTO 41 % (21-46); MONOCYTES ABSOLUTE AUTO 0.64 K/mm3 (0.16-1.47); MONOCYTES PERCENT AUTO 7 % (4-13); Mean Corpuscular HGB 30.3 pg (26.0-34.0); Mean Corpuscular Volume 92 fL (80-100); Mean Platelet Volume 11.1 fL (9.1-12.4); NEUTROPHILS ABSOLUTE AUTO 4.37 K/mm3 (1.96-9.15); NEUTROPHILS PERCENT AUTO 49 % (41-73); Platelet Count 302 K/mm3 (150-400); RDW Coefficient Variation 12.6 % (11.7-14.2); RDW Standard Deviation 42.6 fL (35.1-46.3); Red Blood Cell Count 4.55 M/mm3 (3.80-5.20)
[2021-08-05 08:04] LABS: Alanine Aminotransfer (ALT/SGP 18 U/L (12-78); Albumin, Blood 3.8 g/dL (3.4-5.0); Albumin/Globulin Ratio 1.3 (0.8-1.8); Alk Phos 77 U/L (50-136); Anion Gap 3 mmol/L (6-16); Aspartate Aminotrans (AST/SGOT 11 U/L (12-37); Bilirubin, Total 0.3 mg/dL (0.1-1.0); Blood Urea Nitrogen 13 mg/dL (8-24); Bun/Creatinine Ratio 19.3 (12.0-20.0); CO2, Blood 28 mmol/L (21-32); Calcium, Blood 8.8 mg/dL (8.5-10.1); Chloride, Blood 109 mmol/L (98-108); Creatinine, Blood 0.67 mg/dL (0.40-1.00); Globulin, Blood 2.9 g/dL (2.2-4.0); Glomerular Filtration Rate >60 (60-); Glucose, Blood 97 mg/dL (70-99); Potassium, Blood 3.6 mmol/L (3.5-5.5); Sodium, Blood 140 mmol/L (136-145); Total Protein, Blood 6.7 g/dL (6.4-8.2)
[2021-08-05 08:10] LABS: Influenza A, PCR NEGATIVE (NEGATIVE); Influenza B, PCR NEGATIVE (NEGATIVE); Resp Syncytial Virus, PCR NEGATIVE (NEGATIVE); SARS-Cov-2 (COVID-19) PCR, MMC NEGATIVE (NEGATIVE)
[2021-08-05 09:01] LABS: Source, Urine Clean Catch
[2021-08-05 09:11] LABS: Appearance, Urine Cloudy (Clear); Bilirubin, Urine Neg (Neg); Blood, Urine Neg (Neg); Color, Urine Yellow (P-Yellow); Glucose Qualitative, Urine Neg (Neg); Ketones, Urine Neg (Neg); Leukocyte Esterase, Urine Neg (Neg); Nitrite, Urine Neg (Neg); Protein, Urine Neg (Neg); Specific Gravity, Urine 1.015 (1.003-1.022); Urobilinogen, Urine NORM (Normal)
[2021-08-05 09:24] LABS: White Blood Cells, Urine 0-2 /hpf (0-5)
[2021-08-05 09:25] LABS: Amorphous Heavy (0-Heavy); Bacteria Mod /hpf; Red Blood Cells, Urine 0-2 /hpf (0-2); Squamous Epithelial Cells Rare /hpf (Few)
[2021-08-05] MEDS ORDERED: ONDA4ODT MM (09:34)
[2021-08-05] MEDS ORDERED: LOPE2C PO (09:34)
== END 2021-08-05 10:26 | disposition home or self-care (01) ==
LOC: ER 05:46
PROVIDERS: Emergency Medicine
DX: R11.2 Nausea with vomiting, unspecified (principal); R19.7 Diarrhea, unspecified; F17.210 Nicotine dependence, cigarettes, uncomplicated; M79.7 Fibromyalgia; K31.84 Gastroparesis; Z88.5 Allergy status to narcotic agent; Z88.7 Allergy status to serum and vaccine; Z79.899 Other long term (current) drug therapy; Z79.891 Long term (current) use of opiate analgesic
CPT/HCPCS: 0241U; 80053; 81001; 83690; 85025; 87086; 96374; 96375; 99284-25; C9113; J2405; J3010; J7030

== ENCOUNTER 2022-01-02 13:23 | Emergency (ER) | payer OTHER ==
[~2022-01-02] VITALS: Ht 162.6 cm; Wt 72.6 kg
[~2022-01-02 13:23] MED LIST changes: +BACLOFEN5 M1; +LOPE2C PO; +PANT20
[2022-01-02 14:44] LABS: BASOPHILS ABSOLUTE AUTO 0.05 K/mm3 (0.00-0.23); BASOPHILS PERCENT AUTO 1 % (0-2); EOSINOPHILS ABSOLUTE AUTO 0.13 K/mm3 (0.00-0.68); EOSINOPHILS PERCENT AUTO 2 % (0-6); Hematocrit 40.5 % (33.0-51.0); Hemoglobin 13.2 g/dL (11.5-16.0); IMMATURE GRAN ABSOLUTE AUTO 0.01 K/mm3 (0.00-0.10); IMMATURE GRAN PERCENT AUTO 0 % (0-1); LYMPHOCYTES ABSOLUTE AUTO 3.36 K/mm3 (0.84-5.20); LYMPHOCYTES PERCENT AUTO 53 % (21-46); MONOCYTES ABSOLUTE AUTO 0.41 K/mm3 (0.16-1.47); MONOCYTES PERCENT AUTO 7 % (4-13); Mean Corpuscular HGB 30.3 pg (26.0-34.0); Mean Corpuscular HGB Conc 32.6 g/dL (31.5-36.5); Mean Corpuscular Volume 93 fL (80-100); Mean Platelet Volume 10.7 fL (9.1-12.4); NEUTROPHILS ABSOLUTE AUTO 2.34 K/mm3 (1.96-9.15); NEUTROPHILS PERCENT AUTO 37 % (41-73); Platelet Count 305 K/mm3 (150-400); RDW Coefficient Variation 12.2 % (11.7-14.2); RDW Standard Deviation 41.7 fL (35.1-46.3); Red Blood Cell Count 4.36 M/mm3 (3.80-5.20)
[2022-01-02 16:10] LABS: Source, Urine Clean Catch
[2022-01-02 16:18] LABS: Appearance, Urine Cloudy (Clear); Bilirubin, Urine Neg (Neg); Blood, Urine Neg (Neg); Color, Urine Yellow (P-Yellow); Glucose Qualitative, Urine Neg (Neg); Ketones, Urine Neg (Neg); Leukocyte Esterase, Urine Neg (Neg); Nitrite, Urine Neg (Neg); Protein, Urine Neg (Neg); Urobilinogen, Urine NORM (Normal)
[2022-01-02 16:28] LABS: Amorphous Heavy (0-Heavy); Bacteria Few /hpf; Red Blood Cells, Urine 0-2 /hpf (0-2); Squamous Epithelial Cells Few /hpf (Few); White Blood Cells, Urine 0-2 /hpf (0-5)
[2022-01-02] MEDS ORDERED: METPRE4DP PO (18:06)
== END 2022-01-02 18:55 | disposition home or self-care (01) ==
LOC: ER 13:23
PROVIDERS: Physician Assistant
DX: M48.061 Spinal stenosis, lumbar region without neurogenic claudication (principal); M54.41 Lumbago with sciatica, right side; G89.29 Other chronic pain; F17.210 Nicotine dependence, cigarettes, uncomplicated; Z88.5 Allergy status to narcotic agent; Z88.7 Allergy status to serum and vaccine; Z79.899 Other long term (current) drug therapy
CPT/HCPCS: 36415; 51798; 72148; 81001; 85025; 86140; 96374; 96375; 99284-25; A9270; J1170; J1885

== ENCOUNTER 2022-05-17 13:10 | Emergency (ER) | payer OTHER ==
[~2022-05-17] VITALS: Ht 162.6 cm; Wt 76.2 kg
[2022-05-17 14:23] LABS: BASOPHILS ABSOLUTE AUTO 0.04 K/mm3 (0.00-0.23); BASOPHILS PERCENT AUTO 1 % (0-2); EOSINOPHILS ABSOLUTE AUTO 0.11 K/mm3 (0.00-0.68); EOSINOPHILS PERCENT AUTO 1 % (0-6); Hematocrit 40.8 % (33.0-51.0); Hemoglobin 13.5 g/dL (11.5-16.0); IMMATURE GRAN ABSOLUTE AUTO 0.03 K/mm3 (0.00-0.10); IMMATURE GRAN PERCENT AUTO 0 % (0-1); LYMPHOCYTES ABSOLUTE AUTO 2.53 K/mm3 (0.84-5.20); LYMPHOCYTES PERCENT AUTO 33 % (21-46); MONOCYTES ABSOLUTE AUTO 0.69 K/mm3 (0.16-1.47); MONOCYTES PERCENT AUTO 9 % (4-13); Mean Corpuscular HGB 30.1 pg (26.0-34.0); Mean Corpuscular HGB Conc 33.1 g/dL (31.5-36.5); Mean Corpuscular Volume 91 fL (80-100); Mean Platelet Volume 10.6 fL (9.1-12.4); NEUTROPHILS PERCENT AUTO 55 % (41-73); Platelet Count 337 K/mm3 (150-400); RDW Standard Deviation 42.9 fL (35.1-46.3); Red Blood Cell Count 4.49 M/mm3 (3.80-5.20)
[2022-05-17 14:40] LABS: Albumin, Blood 4.1 g/dL (3.4-5.0); Albumin/Globulin Ratio 1.2 (0.8-1.8); Bilirubin, Total 0.2 mg/dL (0.1-1.0); Bun/Creatinine Ratio 26.5 (12.0-20.0); Calcium, Blood 8.9 mg/dL (8.5-10.1); Creatinine, Blood 0.72 mg/dL (0.40-1.00); Globulin, Blood 3.4 g/dL (2.2-4.0); Potassium, Blood 3.8 mmol/L (3.5-5.5); Total Protein, Blood 7.5 g/dL (6.4-8.2)
[2022-05-17 15:56] LABS: Source, Urine Clean Catch
[2022-05-17 16:14] LABS: Appearance, Urine Hazy (Clear); Bilirubin, Urine Neg (Neg); Blood, Urine Neg (Neg); Color, Urine Yellow (P-Yellow); Glucose Qualitative, Urine Neg (Neg); Ketones, Urine Neg (Neg); Leukocyte Esterase, Urine Neg (Neg); Nitrite, Urine Neg (Neg); Protein, Urine 1+ (Neg); Specific Gravity, Urine 1.015 (1.003-1.022); Urobilinogen, Urine NORM (Normal); pH, Urine 6.5 (5.0-8.0)
[2022-05-17] MEDS ORDERED: DICLOFENAC SOD100 G1 TP (16:51)
[2022-05-17 16:52] LABS: Bacteria Many /hpf; Hyaline Casts 0-2 /lpf (0-2); Mucus Mod (0-Heavy); Squamous Epithelial Cells Few /hpf (Few)
[2022-05-17] MEDS ORDERED: PROP10 PO (16:52)
[2022-05-17] MEDS ORDERED: QUETIAPINE FUMA25 MG PO (16:52)
[2022-05-17] MEDS ORDERED: CEPH500 PO (18:23)
[2022-05-17] MEDS ORDERED: KETO10 PO (18:39)
[2022-05-17] MEDS ORDERED: ONDA4ODT MM (18:39)
== END 2022-05-17 19:00 | disposition home or self-care (01) ==
LOC: ER 13:10
PROVIDERS: Physician Assistant
DX: N39.0 Urinary tract infection, site not specified (principal); K85.90 Acute pancreatitis without necrosis or infection, unspecified; F17.210 Nicotine dependence, cigarettes, uncomplicated; Z88.5 Allergy status to narcotic agent; Z88.7 Allergy status to serum and vaccine; Z79.899 Other long term (current) drug therapy
CPT/HCPCS: 36415; 71045; 76705; 80053; 81001; 81025; 83690; 83880; 84484; 85025; 87077; 87086; 87186; 93005; 93010; 96365; 96375; 99284-25; J0696; J1885; J2405; J7030

== ENCOUNTER → 2022-08-05 | Outpatient (CLI) | payer OTHER ==
[~2022-08-05] MED LIST changes: +CEPH500 PO; +DICLOFENAC SOD100 G1 TP; +KETO10 PO; +QUETIAPINE FUMA25 MG PO
== END | disposition home or self-care (01) ==
LOC: LAB SHORT 10:18 → LAB 10:18
DX: M54.50 Low back pain, unspecified (principal)
CPT/HCPCS: 87086

== ENCOUNTER 2022-08-09 16:41 | Emergency (ER) | payer OTHER ==
[~2022-08-09] VITALS: Ht 162.6 cm; Wt 79.4 kg
[2022-08-09 18:15] LABS: BASOPHILS ABSOLUTE AUTO 0.06 K/mm3 (0.00-0.23); BASOPHILS PERCENT AUTO 1 % (0-2); EOSINOPHILS PERCENT AUTO 1 % (0-6); Hematocrit 42.1 % (33.0-51.0); Hemoglobin 14.3 g/dL (11.5-16.0); IMMATURE GRAN ABSOLUTE AUTO 0.02 K/mm3 (0.00-0.10); IMMATURE GRAN PERCENT AUTO 0 % (0-1); LYMPHOCYTES ABSOLUTE AUTO 4.45 K/mm3 (0.84-5.20); LYMPHOCYTES PERCENT AUTO 48 % (21-46); MONOCYTES ABSOLUTE AUTO 0.57 K/mm3 (0.16-1.47); MONOCYTES PERCENT AUTO 6 % (4-13); Mean Corpuscular HGB 30.5 pg (26.0-34.0); Mean Corpuscular Volume 90 fL (80-100); Mean Platelet Volume 10.7 fL (9.1-12.4); NEUTROPHILS ABSOLUTE AUTO 4.06 K/mm3 (1.96-9.15); NEUTROPHILS PERCENT AUTO 44 % (41-73); Platelet Count 357 K/mm3 (150-400); RDW Standard Deviation 42.8 fL (35.1-46.3); Red Blood Cell Count 4.69 M/mm3 (3.80-5.20); White Blood Cell Count 9.26 K/mm3 (4.00-11.30)
[2022-08-09 18:34] LABS: Albumin, Blood 4.2 g/dL (3.4-5.0); Albumin/Globulin Ratio 1.2 (0.8-1.8); Bilirubin, Total 0.3 mg/dL (0.1-1.0); Bun/Creatinine Ratio 12.6 (12.0-20.0); Calcium, Blood 9.3 mg/dL (8.5-10.1); Creatinine, Blood 0.72 mg/dL (0.40-1.00); Globulin, Blood 3.6 g/dL (2.2-4.0); Potassium, Blood 3.6 mmol/L (3.5-5.5); Total Protein, Blood 7.8 g/dL (6.4-8.2)
[2022-08-09] MEDS ORDERED: ONDA4ODT MM (22:59)
== END 2022-08-09 23:12 | disposition home or self-care (01) ==
LOC: ER 16:41
PROVIDERS: Physician Assistant
DX: K52.9 Noninfective gastroenteritis and colitis, unspecified (principal); F17.210 Nicotine dependence, cigarettes, uncomplicated; Z88.5 Allergy status to narcotic agent; Z88.7 Allergy status to serum and vaccine; Z79.899 Other long term (current) drug therapy
CPT/HCPCS: 36415; 74177; 80053; 83690; 85025; A9270; Q9967